=== PATIENT | male | born 1945 | race Caucasian/White ===

== ENCOUNTER → 2016-05-12 | Outpatient (CLI) | payer MEDICARE ==
[~2016-05-12] MED LIST: ASPIRIN 325MG325 MG PO; IMDUR ER TAB 3030 MG PO; ZESTRIL5 MG PO
== END ==
DX: M51.9 Unspecified thoracic, thoracolumbar and lumbosacral intervertebral disc disorder (principal); I27.2 Other secondary pulmonary hypertension; G47.33 Obstructive sleep apnea (adult) (pediatric); E78.5 Hyperlipidemia, unspecified; I10 Essential (primary) hypertension; I25.10 Atherosclerotic heart disease of native coronary artery without angina pectoris; E03.9 Hypothyroidism, unspecified; F41.9 Anxiety disorder, unspecified; M51.27 Other intervertebral disc displacement, lumbosacral region; M99.73 Connective tissue and disc stenosis of intervertebral foramina of lumbar region
CPT/HCPCS: 72148

== ENCOUNTER → 2020-03-08 | Outpatient (CLI) | payer MEDICARE, OTHER ==
[~2020-03-08] MED LIST changes: +ACETAMINOPHEN325 MG PO; +ADVAIR 100-501 EACH INH; +AMBIEN10 MG PO; +ASPIRIN CHEWABL81 MG PO; +COLACE 100MG C100 MG PO; +ELIQUIS2.5 MG PO; +K-DUR TAB 20 M20 MEQ PO; +KLONOPIN TAB 00.5 MG PO; +LASIX40 MG PO; +LEVAQUIN500 MG PO; +LEVOTHYROXINE150 MCG PO; +LIPITOR TAB 2020 MG PO; +LORTAB 7.5-3251 EACH PO; +MIRALAX17 GM PO; +PLAVIX 75 MG TA75 MG PO; +PREDNISONE10 MG PO; +PROTONIX40 MG PO; +SENOKOT-S TABL1 EACH PO; +SPIRIVA18 MCG INH; +TOPROL XL25 MG PO; +VENTOLIN HFA 66.7 GM INH; +VISTARIL 50 MG50 MG PO; +Voltaren Gel 1% TOP
== END ==
LOC: LAB 11:30
DX: Z51.81 Encounter for therapeutic drug level monitoring (principal); Z79.899 Other long term (current) drug therapy
CPT/HCPCS: 36415; 80076

== ENCOUNTER → 2020-08-06 | Outpatient (CLI) | payer MEDICARE | LOC: LAB 11:50 | DX: Z51.81 Encounter for therapeutic drug level monitoring (principal); Z79.899 Other long term (current) drug therapy | CPT/HCPCS: 36415; 80076 ==

== ENCOUNTER 2020-10-26 17:58 | Emergency (ER) | payer MEDICARE ==
[2020-10-26 19:03] LABS: HEMOGLOBIN 12.2 gm/dl (14.0-17.5); RED BLOOD COUNT 3.47 M/UL (4.20-5.50); WHITE BLOOD COUNT 3.7 K/UL (4.5-11.0)
[2020-10-26 19:46] LABS: BUN/CREATININE RATIO 8 (0-10)
== END 2020-10-26 21:48 | disposition home or self-care (01) ==
LOC: ER1 17:58
PROVIDERS: Physician Assistant
DX: J20.9 Acute bronchitis, unspecified (principal); I25.10 Atherosclerotic heart disease of native coronary artery without angina pectoris; I10 Essential (primary) hypertension; I25.2 Old myocardial infarction; Z20.822 Contact with and (suspected) exposure to COVID-19
CPT/HCPCS: 71045; 80053; 82550; 82553; 83874; 83880; 84484; 85025; 93005; 99285; U0002

== ENCOUNTER 2020-10-27 12:59 | Emergency (ER) | payer MEDICARE | END 2020-10-27 15:29 | disposition home or self-care (01) | LOC: ER1 12:59 | DX: R05 Cough (principal); I25.2 Old myocardial infarction; I10 Essential (primary) hypertension; Z20.822 Contact with and (suspected) exposure to COVID-19 | CPT/HCPCS: 99284; U0002 ==

== ENCOUNTER → 2021-03-28 | Outpatient (CLI) | payer MEDICARE | LOC: LAB 13:27 | DX: Z51.81 Encounter for therapeutic drug level monitoring (principal); Z79.899 Other long term (current) drug therapy | CPT/HCPCS: 36415; 80076 ==

== ENCOUNTER 2021-10-13 17:42 | Inpatient (IN) | payer MEDICARE ==
[~2021-10-13] VITALS: Ht 175.3 cm; Wt 129.3 kg
[2021-10-13 20:07] LABS: HEMOGLOBIN 12.7 gm/dl (14.0-17.5); RED BLOOD COUNT 3.6 M/UL (4.20-5.50); WHITE BLOOD COUNT 6.9 K/UL (4.5-11.0)
[2021-10-13 20:49] LABS: BUN/CREATININE RATIO 10 (0-10)
[2021-10-14 04:39] LABS: HEMOGLOBIN 12.2 gm/dl (14.0-17.5); RED BLOOD COUNT 3.47 M/UL (4.20-5.50); WHITE BLOOD COUNT 6.1 K/UL (4.5-11.0)
[2021-10-14 04:56] LABS: BUN/CREATININE RATIO 11 (0-10)
[2021-10-14] MEDS ORDERED: TRAZODONE HCL100 MG PO (11:07)
[2021-10-14] MEDS ORDERED: HYDROCODON-ACE1 EAC2 PO (11:07)
[2021-10-14] MEDS ORDERED: TERBINAFINE HC250 MG PO (11:08)
[2021-10-14] MEDS ORDERED: ONDANSETRON HCL4 MG PO (11:17)
[2021-10-15 08:46] LABS: HEMOGLOBIN 11.9 gm/dl (14.0-17.5); RED BLOOD COUNT 3.38 M/UL (4.20-5.50); WHITE BLOOD COUNT 5.9 K/UL (4.5-11.0)
[2021-10-15 09:15] LABS: BUN/CREATININE RATIO 16 (0-10)
[2021-10-16 05:27] LABS: HEMOGLOBIN 11.8 gm/dl (14.0-17.5); RED BLOOD COUNT 3.35 M/UL (4.20-5.50)
[2021-10-16 05:32] LABS: WHITE BLOOD COUNT 4.1 K/UL (4.5-11.0)
[2021-10-16 05:50] LABS: BUN/CREATININE RATIO 21 (0-10)
[2021-10-17 02:42] LABS: RED BLOOD COUNT 3.12 M/UL (4.20-5.50); WHITE BLOOD COUNT 3.3 K/UL (4.5-11.0)
[2021-10-17 03:21] LABS: BUN/CREATININE RATIO 16 (0-10)
--- NOTE | 2021-10-17 09:50 | NUR ---
PATIENT O2 SATS 87% ON ROOM AIR.
[2021-10-18 03:08] LABS: HEMOGLOBIN 11.4 gm/dl (14.0-17.5); RED BLOOD COUNT 3.19 M/UL (4.20-5.50); WHITE BLOOD COUNT 3.8 K/UL (4.5-11.0)
[2021-10-18 03:46] LABS: BUN/CREATININE RATIO 16 (0-10)
[2021-10-18] MEDS ORDERED: LEVOFLOXACIN750 MG PO (11:52)
[2021-10-18] MEDS ORDERED: MELATONIN3 MG PO (11:52)
[2021-10-18] MEDS ORDERED: PROTONIX 40 MG40 M1 PO (11:52)
[2021-10-18] MEDS ORDERED: IPRAT-ALBUT 0.5-3 ML NEB (11:52)
[2021-10-18] MEDS ORDERED: BUDESONIDE0.5 MG/2 M NEB (11:52)
[2021-10-18] MEDS ORDERED: DECADRON6 MG PO (11:52)
[2021-10-18] MEDS ORDERED: AMOX TR-K CLV1 EAC4 PO (11:52)
== END 2021-10-18 12:52 | disposition home or self-care (01) | DRG 177 ==
LOC: ER1 17:42 → CDU 23:01 → M/S 23:01
PROVIDERS: Internal Medicine; Physician Assistant; ADMIT Internal Medicine
PROC: 8E0ZXY6 Isolation (ICD-10-PCS; principal; 2021-10-13)
PROC: XW033E5 Introduction of Remdesivir Anti-infective into Peripheral Vein, Percutaneous Approach, New Technology Group 5 (ICD-10-PCS; 2021-10-13)
PROC: 3E0333Z Introduction of Anti-inflammatory into Peripheral Vein, Percutaneous Approach (ICD-10-PCS; 2021-10-13)
DX: U07.1 COVID-19 (principal); J12.82 Pneumonia due to coronavirus disease 2019; J15.9 Unspecified bacterial pneumonia; J96.01 Acute respiratory failure with hypoxia; E87.2 Acidosis; I25.10 Atherosclerotic heart disease of native coronary artery without angina pectoris; E78.5 Hyperlipidemia, unspecified; I10 Essential (primary) hypertension; E87.6 Hypokalemia; E03.9 Hypothyroidism, unspecified; I27.20 Pulmonary hypertension, unspecified; K59.09 Other constipation; J45.909 Unspecified asthma, uncomplicated; G47.00 Insomnia, unspecified; Z95.5 Presence of coronary angioplasty implant and graft; Z82.49 Family history of ischemic heart disease and other diseases of the circulatory system; Z79.899 Other long term (current) drug therapy
CPT/HCPCS: 0240U; 36415; 36600; 71045; 80048; 80053; 80202; 82550; 82553; 82803; 83605; 83615; 83880; 84484; 85025; 85027; 86140; 87040; 87070; 87205; 93005; 94640; 94664; 94760; 96374; 96375; 99285; J0248; J1100; J1335; J1650; J1940; J2930; J3370; J7030; J7070; Q9967

== ENCOUNTER → 2021-10-24 | Outpatient (CLI) | payer MEDICARE ==
[~2021-10-24] MED LIST changes: +AMOX TR-K CLV1 EAC4 PO; +BUDESONIDE0.5 MG/2 M NEB; +DECADRON6 MG PO; +HYDROCODON-ACE1 EAC2 PO; +IPRAT-ALBUT 0.5-3 ML NEB; +LEVOFLOXACIN750 MG PO; +MELATONIN3 MG PO; +ONDANSETRON HCL4 MG PO; +PROTONIX 40 MG40 M1 PO; +TERBINAFINE HC250 MG PO; +TRAZODONE HCL100 MG PO
== END ==
LOC: LAB 10:18
DX: Z79.899 Other long term (current) drug therapy (principal)
CPT/HCPCS: 36415; 80076